=== PATIENT | male | born 1960 | race Caucasian/White ===

== ENCOUNTER 2024-11-07 19:22 | Observation (INO) | payer OTHER ==
[2024-11-07 20:41] LABS: Absolute Basophils 0.1 K/uL (0-0.5); Absolute Eosinophils 0.1 K/uL (0-0.5); Absolute Lymphocytes (CBC) 1.2 K/uL (0.7-4.9); Absolute Monocytes 0.3 K/uL (0.1-1.3); Absolute Neutrophil 10.2 K/uL (1.8-8.0); Basophils % 0.6 % (0-1.3); Eosinophils % 0.7 % (0-4.4); Hematocrit 47.2 % (39.6-49.0); Hemoglobin 15.8 g/dL (13.6-17.9); Lymphocytes % 10.3 % (15.3-44.8); MCH 32.1 pg (27.0-35.0); MCHC 33.5 g/dL (32.0-36.0); MCV 95.9 fL (80-100); MPV 8.8 fL (7.6-11.3); Monocytes % 2.9 % (3.3-12.3); Neutrophils % 85.5 % (41.7-73.7); Platelets 184 thou/uL (152-406); RBC Red Blood Cell Count 4.92 M/uL (4.33-5.43); Red Cell Distribution Width 13.2 % (12.1-15.2)
[2024-11-07 20:47] LABS: PT Prothrombin Time 11.5 SECONDS (10-13.0); Protime INR 1.01
[2024-11-07 21:02] LABS: ALT/SGPT 20 U/L (16-61); AST/SGOT 22 U/L (15-37); Albumin/Globulin Ratio 1.2 (1.1-1.8); Alkaline Phosphatase 99 U/L (45-117); Anion Gap 8.3 mEq/L (5.0-15.0); BUN Blood Urea Nitrogen 12 mg/dL (7-18); Bicarbonate 30 mEq/L (21-32); Bilirubin Total 0.8 mg/dL (0.2-1.0); Globulin 3.4 g/dL (2.3-3.5); Glomerular Filtration Rate 85 ml/min (=/>90); Glucose Level 122 mg/dL (74-106); Lipase 35 U/L (13-75); Magnesium 2.3 mg/dL (1.6-2.4); NT PRO-BNP 156 pg/mL (<125); Potassium 4.3 mEq/L (3.5-5.1); Protein, Total 7.4 g/dL (6.4-8.2); Sodium Level 138 mEq/L (136-145); Troponin High Sensitivity 9.8 pg/mL (<58.9)
[2024-11-07 21:08] LABS: Bilirubin Direct < 0.2 mg/dL (0-0.2); Bilirubin Indirect, Calculated 0.6 mg/dL (0.2-0.8)
--- NOTE | 2024-11-07 21:18 | RAD REPORT ---
EXAM: CT brain without contrast HISTORY: HEADACHE COMPARISON: None TECHNIQUE: Multiple contiguous axial images were obtained and a CT of the brain without contrast. Sag ittal and coronal reformats were performed. One or more of the following dose reduction techniques were used: Automated exposure control, adjust ment of the mA and/or kV according to patient size, and/or iterative reconstruction. FINDINGS: No evidence of hydrocephalus, intracranial hemorrhage, or extra-axial fluid collection. The brain is normal in morphology. No evidence of midline shift or areas of brain edema. The calvarium is intact. The visualized paranasal sinuses and mastoid air cells are essentially clear . IMPRESSION: No evidence of acute intracranial abnormality.
[2024-11-07] MEDS ORDERED: ASPIRIN EC 81 MG TAB PO ONE (21:28)
[2024-11-07] MEDS ORDERED: NA CHLORIDE 0.9% 1,000 ML ONE (21:28)
--- NOTE | 2024-11-07 21:31 | RAD REPORT ---
EXAMINATION: ONE VIEW CHEST XR CLINICAL INDICATION: CHEST PAIN TECHNIQUE: Frontal chest projection is submitted. Examination is limited by patient positioning and t echnique. COMPARISON: 12/26/2007 FINDINGS: The lungs are well inflated and clear. The heart is upper limit of normal in size. No displaced fract ures identified. IMPRESSION: No acute intrathoracic abnormalities.
--- NOTE | 2024-11-07 21:35 | EDPHYS ---
Physician Documentation [facility] Name: Benoit Lau Age: 64 yrs Sex: Male : 1960 Arrival Date: 11/07/2024 Time: 19:22 Bed 13 Private MD: ED Physician Holland Villarreal HPI: 11/07 20:38 This 64 yrs old Male presents to ER via Ambulatory with complaints of Chest katrina Tightness, High Blood Pressure, Headache. 20:38 The patient or guardian reports chest pain that is located primarily in the substernal katrina area. Onset: last night. The pain does not radiate. Associated signs and symptoms: The patient has no apparent associated signs or symptoms. The chest pain is described as a pressure. Duration: The patient or guardian reports a single episode, that is still ongoing. Modifying factors: The symptoms are alleviated by nothing. the symptoms are aggravated by nothing. Severity of pain: At its worst the pain was moderate in the emergency department the pain has improved mildly. The patient has not experienced similar symptoms in the past. Historical: - Allergies: 20:11 mycins; iw 20:11 Darvocet-N 100; iw 20:11 Morphine; iw 20:11 Sulfa (Sulfonamide Antibiotics); iw 20:11 Keflex; iw - Home Meds: 20:11 Dilaudid 2 mg oral tablet every 8 hours [Active]; iw - PMHx: 20:11 Chronic pain; iw - PSHx: 20:11 back X 3; iw - Immunization history:: Adult Immunizations not up to date. - Infectious Disease History:: Denies. - Social history:: Smoking status: Patient denies any tobacco usage or history of. - Family history:: not pertinent. ROS: 20:38 Constitutional: Negative for fever, chills, and weight loss, Eyes: Negative for injury, katrina pain, redness, and discharge, ENT: Negative for injury, pain, and discharge, Neck: Negative for injury, pain, and swelling, Respiratory: Negative for shortness of breath, cough, wheezing, and pleuritic chest pain, Abdomen/GI: Negative for abdominal pain, nausea, vomiting, diarrhea, and constipation, Back: Negative for injury and pain, : Negative for injury, bleeding, discharge, and swelling, MS/Extremity: Negative for injury and deformity, Skin: Negative for injury, rash, and discoloration, Neuro: Negative for headache, weakness, numbness, tingling, and seizure, Psych: Negative for depression, anxiety, suicide ideation, homicidal ideation, and hallucinations, Allergy/Immunology: Negative for hives, rash, and allergies, Endocrine: Negative for neck swelling, polydipsia, polyuria, polyphagia, and marked weight changes, Hematologic/Lymphatic: Negative for swollen nodes, abnormal bleeding, and unusual bruising, 20:38 Cardiovascular: Positive for chest pain, of the chest, Exam: 20:38 Constitutional: This is a well developed, well nourished patient who is awake, alert, katrina and in no acute distress. Head/Face: Normocephalic, atraumatic. Eyes: Pupils equal round and reactive to light, extra-ocular motions intact. Lids and lashes normal. Conjunctiva and sclera are non-icteric and not injected. Cornea within normal limits. Periorbital areas with no swelling, redness, or edema. ENT: Nares patent. No nasal discharge, no septal abnormalities noted. Tympanic membranes are normal and external auditory canals are clear. Oropharynx with no redness, swelling, or masses, exudates, or evidence of obstruction, uvula midline. Mucous membranes moist. Neck: Trachea midline, no thyromegaly or masses palpated, and no cervical lymphadenopathy. Supple, full range of motion without nuchal rigidity, or vertebral point tenderness. No Meningismus. Chest/axilla: Normal chest wall appearance and motion. Nontender with no deformity. No lesions are appreciated. Cardiovascular: Regular rate and rhythm with a normal S1 and S2. No gallops, murmurs, or rubs. Normal PMI, no JVD. No pulse deficits. Respiratory: Lungs have equal breath sounds bilaterally, clear to auscultation and percussion. No rales, rhonchi or wheezes noted. No increased work of breathing, no retractions or nasal flaring. Abdomen/GI: Soft, non-tender, with normal bowel sounds. No distension or tympany. No guarding or rebound. No evidence of tenderness throughout. Back: No spinal tenderness. No costovertebral tenderness. Full range of motion. Male : Normal genitalia with no discharge or lesions. Skin: Warm, dry with normal turgor. Normal color with no rashes, no lesions, and no evidence of cellulitis. MS/ Extremity: Pulses equal, no cyanosis. Neurovascular intact. Full, normal range of motion., bilateral aka Neuro: Awake and alert, GCS 15, oriented to person, place, time, and situation. Cranial nerves II-XII grossly intact. Motor strength 5/5 in all extremities. Sensory grossly intact. Cerebellar exam normal. Normal gait. Psych: Awake, alert, with orientation to person, place and time. Behavior, mood, and affect are within normal limits. 20:38 ECG was reviewed by the Attending Physician. 20:38 Musculoskeletal/extremity: ROM: no acute changes, Circulation is intact in all extremities. Compartment Syndrome exam of affected extremity: is normal. DVT Exam: No signs of deep vein thrombosis. no pain, no swelling, no tenderness, negative Homans' sign noted on exam, no appreciated bluish discoloration, no erythema, no increased warmth, 21:37 ECG was reviewed by the Attending Physician. [facility] Vital Signs: 20:09 BP 198 / 86; Pulse 62; Resp 16; Temp 98.2; Pulse Ox 100% ; Weight 81.65 kg; Height 5 iw ft. 8 in. ; Pain 8/10; 21:52 BP 186 / 83; Pulse 68; Resp 16 S; Pulse Ox 99% on R/A; br2 22:00 BP 183 / 81; Pulse 60; Resp 15; Pulse Ox 100% ; me1 23:00 BP 169 / 83; Pulse 62; Resp 18; Pulse Ox 96% ; cp4 11/08 00:00 BP 162 / 83; Pulse 64; Resp 18; Pulse Ox 97% ; cp4 02:36 BP 146 / 75; Pulse 63; Resp 18; Pulse Ox 94% ; cp4 11/07 20:09 Body Mass Index 27.37 (81.65 kg, 172.72 cm) iw 11/07 20:09 Pain Scale: Adult iw MDM: 11/07 20:10 Medical Screening Exam initiated katrina 20:40 HEART Score: History: Slightly Suspicious (0), Age: > 45 and < 65 years (1), Risk katrina Factors: 1 or 2 risk factors (1), [Hypertension] [+ Family HX]. The patient was given aspirin in the Emergency Department. Data reviewed: vital signs, nurses notes, lab test result(s), EKG, radiologic studies, CT scan, plain films. Consideration of Admission/Observation Escalation of care including admission/observation considered. Independent interpretation of the following test(s) in the Emergency Department EKG: See my EKG interpretation above. 11/07 20:09 Order name: Basic Metabolic Panel; Complete Time: 21:38 katrina 11/07 20:09 Order name: CBC with Diff; Complete Time: 21:38 katrina 11/07 20:09 Order name: LFT's; Complete Time: 21:38 11/07 20:09 Order name: Magnesium; Complete Time: 21:38 11/07 20:09 Order name: NT PRO-BNP; Complete Time: 21:38 katrina 11/07 20:09 Order name: PT-INR; Complete Time: 21:38 katrina 11/07 20:09 Order name: Troponin HS; Complete Time: 21:38 [facility] 11/07 20:09 Order name: Lipase; Complete Time: 21:38 [facility] 11/07 20:09 Order name: Urinalysis w/ reflexes katrina 11/07 22:40 Order name: Urinalysis w/ reflexes [facility]OK 11/07 22:40 Order name: CBC with Automated Diff EDMS 11/07 22:40 Order name: CBC with Automated Diff EDMS 11/07 22:40 Order name: Comprehensive Metabolic Panel EDMS 11/07 22:40 Order name: Comprehensive Metabolic Panel EDMS 11/07 22:40 Order name: Troponin High Sensitivity EDMS 11/07 22:40 Order name: Troponin High Sensitivity EDMS 11/07 20:09 Order name: XRAY Chest (1 view); Complete Time: 21:38 [facility] 11/07 20:37 Order name: CT Head Brain wo Cont; Complete Time: 21:38 katrina 11/07 20:09 Order name: EKG; Complete Time: 20:09 11/07 20:09 Order name: Cardiac monitoring; Complete Time: 22:06 katrina 11/07 20:09 Order name: EKG - Nurse/Tech; Complete Time: 21:52 katrina 11/07 20:09 Order name: IV Saline Lock; Complete Time: 21:51 katrina 11/07 20:09 Order name: Labs collected and sent; Complete Time: 21:51 katrina 11/07 20:09 Order name: O2 Per Protocol; Complete Time: 21:51 katrina 11/07 20:09 Order name: O2 Sat Monitoring; Complete Time: 21:51 katrina EC:37 Rate is 65 beats/min. Rhythm is regular. QRS [place] is Normal. [place] interval is shortened katrina at 100 msec. QRS interval is normal. QT interval is normal. No Q waves. T waves are Normal. No ST changes noted. Clinical impression: NSR w/ Non-specific ST/T Changes and No evidence of ischemia. Interpreted by me. Reviewed by me. Administered Medications: 21:48 Drug: Aspirin PO Chewable Tablet 81 mg PO once Route: PO; br2 23:08 Follow up: Response: No adverse reaction me1 21:48 Drug: Metoprolol PO 25 mg PO once Route: PO; br2 23:07 Follow up: Response: No adverse reaction; Blood pressure is lowered me1 21:48 Drug: Lisinopril PO 20 mg PO once Route: PO; br2 23:07 Follow up: Response: No adverse reaction; Blood pressure is lowered me1 21:49 Drug: NS 0.9% IV 500 ml 500 ml IV at 1 bolus once; to be given as a bolus over 30 br2 minutes Volume: 500 ml; Route: IV; Rate: 1 bolus; Site: left antecubital; 23:08 Follow up: Response: No adverse reaction; IV Status: Completed infusion me1 Disposition Summary: 11/07/24 21:35 Hospitalization Ordered Notes: Hospitalization Status: Observation katrina Provider: Ben Hercules cha Location: Telemetry/MedSurg (observation) katrina Condition: Stable katrina Problem: new katrina Symptoms: have improved katrina Bed/Room Type: Standard [facility] Room Assignment: 406(11/08/24 01:16) br2 Diagnosis - Chest pain, unspecified katrina - Essential (primary) hypertension katrina Forms: - Medication Reconciliation Form katrina - SBAR form katrina - Leadership Thank You Letter katrina Signatures: Dispatcher [employer] Holland Rodriguez MD MD cha Williams, Irene, RN RN iw Elise Noble RN RN br2 Caro Magdaleno RN me1 Corrections: (The following items were deleted from the chart) 11/08 00:33 11/07 21:35 katrina br2 03 00:48 00:33 413 br2 br2 01:16 00:48 br2 br2
--- NOTE | 2024-11-07 21:35 | ER ---
Nurse's Notes [facility] Name: Benoit Lau Age: 64 yrs Sex: Male : 1960 Arrival Date: 11/07/2024 Time: 19:22 Bed 13 Private MD: Diagnosis: Chest pain, unspecified;Essential (primary) hypertension Presentation: 11/07 20:09 Chief complaint: Patient states: chest tightness and fullness since yesterday , also iw has a bad headache, and his BP has been elevated. Coronavirus screen: At this time, the client does not indicate any symptoms associated with coronavirus-19. Ebola Screen: No symptoms or risks identified at this time. Initial Sepsis Screen: Does the patient meet any 2 criteria? No. Patient's initial sepsis screen is negative. Does the patient have a suspected source of infection? No. Patient's initial sepsis screen is negative. Risk Assessment: Do you want to hurt yourself or someone else? Patient reports no desire to harm self or others. Onset of symptoms was November 06, 2024. 20:09 Method Of Arrival: Ambulatory iw 20:09 Acuity: BETSY 3 iw Historical: - Allergies: 20:11 mycins; iw 20:11 Darvocet-N 100; iw 20:11 Morphine; iw 20:11 Sulfa (Sulfonamide Antibiotics); iw 20:11 Keflex; iw - Home Meds: 20:11 Dilaudid 2 mg oral tablet every 8 hours [Active]; iw - PMHx: 20:11 Chronic pain; iw - PSHx: 20:11 back X 3; iw - Immunization history:: Adult Immunizations not up to date. - Infectious Disease History:: Denies. - Social history:: Smoking status: Patient denies any tobacco usage or history of. - Family history:: not pertinent. Screenin:30 [facility] ED Fall Risk Assessment (Adult) History of falling in the last 3 months, me1 including since admission No falls in past 3 months (0 pts) Confusion or Disorientation No (0 pts) Intoxicated or Sedated No (0 pts) Impaired Gait No (0 pts) Mobility Assist Device Used No (0 pt) Altered Elimination No (0 pt) Score/Fall Risk Level 0 - 2 = Low Risk. Abuse screen: Denies threats or abuse. Nutritional screening: No deficits noted. Tuberculosis screening: No symptoms or risk factors identified. Assessment: 21:30 General: Appears uncomfortable, well groomed, well developed, well nourished, Behavior me1 is calm, cooperative, appropriate for age, Reports chest tightness and fullness since yesterday , also has a bad headache, and his BP has been elevated. Pain: Complains of pain in head and chest Pain does not radiate. Pain currently is 6 out of 10 on a pain scale. Quality of pain is described as fullness Pain began 1 day ago. Is continuous. Neuro: Level of Consciousness is awake, alert, obeys commands, Oriented to person, place, time, situation, Appropriate for age Reports headache. Cardiovascular: Reports chest pain, Patient's skin is warm and dry. Respiratory: Airway is patent Respiratory effort is even, unlabored, Respiratory pattern is regular, symmetrical. GI: No signs and/or symptoms were reported involving the gastrointestinal system. : No signs and/or symptoms were reported regarding the genitourinary system. EENT: No signs and/or symptoms were reported regarding the EENT system. Derm: Skin is intact, is healthy with good turgor, Skin is pink, warm \T\ dry. Musculoskeletal: No signs and/or symptoms reported regarding the musculoskeletal system. Vital Signs: 20:09 BP 198 / 86; Pulse 62; Resp 16; Temp 98.2; Pulse Ox 100% ; Weight 81.65 kg; Height 5 iw ft. 8 in. ; Pain 8/10; 21:52 BP 186 / 83; Pulse 68; Resp 16 S; Pulse Ox 99% on R/A; br2 22:00 BP 183 / 81; Pulse 60; Resp 15; Pulse Ox 100% ; me1 23:00 BP 169 / 83; Pulse 62; Resp 18; Pulse Ox 96% ; cp4 11/08 00:00 BP 162 / 83; Pulse 64; Resp 18; Pulse Ox 97% ; cp4 02:36 BP 146 / 75; Pulse 63; Resp 18; Pulse Ox 94% ; cp4 11/07 20:09 Body Mass Index 27.37 (81.65 kg, 172.72 cm) iw 11/07 20:09 Pain Scale: Adult iw ED Course: 11/07 19:23 Patient arrived in ED. jj6 20:07 Holland Villarreal MD is Attending Physician. katrina 20:11 Triage completed. iw 20:13 Arm band placed on. iw 21:06 XRAY Chest (1 view) In Process Unspecified. EDMS 21:10 CT Head Brain wo Cont In Process Unspecified. EDMS 21:30 Patient has correct armband on for positive identification. Bed in low position. Call me1 light in reach. Side rails up X2. Provided Education on: POC. Verbalized understanding.. Client placed on continuous cardiac and pulse oximetry monitoring. NIBP monitoring applied. case monitor on. Pulse ox on. NIBP on. 21:30 No provider procedures requiring assistance completed. Patient maintains SpO2 me1 saturation greater than 95% on room air. 21:34 Ben Hercules MD is Hospitalizing Provider. [facility] 21:51 Cindy Rothman is Primary Nurse. cp4 21:51 IV Changed dressing on left antecubital 20g. br2 11/08 02:35 Patient admitted, IV remains in place. cp4 Administered Medications: 11/07 21:48 Drug: Aspirin PO Chewable Tablet 81 mg PO once Route: PO; br2 23:08 Follow up: Response: No adverse reaction me1 21:48 Drug: Metoprolol PO 25 mg PO once Route: PO; br2 23:07 Follow up: Response: No adverse reaction; Blood pressure is lowered me1 21:48 Drug: Lisinopril PO 20 mg PO once Route: PO; br2 23:07 Follow up: Response: No adverse reaction; Blood pressure is lowered me1 21:49 Drug: NS 0.9% IV 500 ml 500 ml IV at 1 bolus once; to be given as a bolus over 30 br2 minutes Volume: 500 ml; Route: IV; Rate: 1 bolus; Site: left antecubital; 23:08 Follow up: Response: No adverse reaction; IV Status: Completed infusion me1 Medication: 21:30 VIS not applicable for this client. me1 Outcome: 21:35 Decision to Hospitalize by Provider. [facility] 11/08 02:35 Admitted to Med/surg accompanied by tech, via stretcher, room 406, with chart, cp4 Condition: stable Instructed on the need for admit, 02:44 Patient left the ED. cp4 Signatures: Dispatcher [employer] EDHolland Chase MD MD cha Williams, Irene, RN RN Kelsey Bautista Michelle, RN RN me1 Cindy Rothman cp4 Elise Noble RN RN br2 Corrections: (The following items were deleted from the chart) 11/07 23:04 20:09 Chief complaint: Patient states: chest tightness and fullness since yesterday , maribel also has a bad headache, and his BP has been elevated iw
[2024-11-07] MEDS ORDERED: lisinopriL 20 MG TAB ONE (21:38)
[2024-11-07] MEDS ORDERED: METOPROLOL TAR 25 MG TAB ONE (21:38)
--- NOTE | 2024-11-07 22:35 | P.HP ---
Certification for Inpatient Patient admitted to: Observation With expected LOS: <2 Midnights Practitioner: I am a practitioner with admitting privileges, knowledge of patient current condition, hospital course, and medical plan of care. Services: Services provided to patient in accordance with Admission requirements found in Title 42 Section 412.3 of the Code of Federal Regulations Patient History Date of Service: 11/08/24 Reason for admission: CP History of Present Illness: 64 yrs old Male with past medical history of chronic pain who presented to the ER with chest discomfort. Patient started having chest pain which is located in substernal area as a pressure-like feeling with no radiation. Denies any diaphoresis. No fever or chills. No nausea vomiting or diarrhea. No sick contacts. Does not have any change in position or exercise. At the time of interview the pain is slightly better. Denies any previous history of CAD. Patient also having some headache not associated with any nausea or vomiting or blurring of vision. Denies any weakness Patient was assessed in the ER and is admitted for further management of chest pain rule out ACS Allergies acetaminophen [From Darvocet-N 100] Allergy (Verified 11/08/24 01:54) unk azithromycin Allergy (Verified 11/08/24 02:56) stomach pain cephalexin [From Keflex] Allergy (Verified 11/08/24 02:56) abdominal pain morphine Allergy (Verified 11/08/24 02:56) Nausea/Vomiting propoxyphene [From Darvocet-N 100] Allergy (Verified 11/08/24 01:54) unk Sulfa (Sulfonamide Antibiotics) Allergy (Verified 11/08/24 01:54) unk Home medications list reviewed: Yes Home Medications: Amlodipine [Norvasc*] 10 mg PO DAILY #30 tab 11/08/24 Apixaban [Eliquis] 5 mg PO BID #74 tab 11/08/24 Aspirin [Aspirin EC 81 MG] 81 mg PO DAILY #30 tab 11/08/24 Atorvastatin Calcium [Lipitor] 40 mg PO BEDTIME #30 tab 11/08/24 Baclofen 20 mg PO BID 11/08/24 Carvedilol [Coreg] 12.5 mg PO BID 11/08/24 Hydromorphone HCl [Dilaudid] 8 mg PO TID 11/08/24 Lisinopril [Zestril] 20 mg PO DAILY 11/08/24 - Past Medical/Surgical History Past Medical History: Reviewed- Non-Contributory -: HTN, HLD Past Surgical History: Reviewed- Non-Contributory - Family History Family History: Reviewed- Non-Contributory - Social History Smoking Status: Never smoker Review of Systems 10-point ROS is otherwise unremarkable Physical Examination - Vital Signs Temperature: 97.5 F Blood Pressure: 138/72 Pulse: 76 Respirations: 18 Pulse Ox (%): 94 - Physical Exam General: Alert, In no apparent distress, Oriented x3 HEENT: Atraumatic, Normocephalic Neck: Supple Respiratory: Clear to auscultation bilaterally, Normal air movement Cardiovascular: Regular rate/rhythm, Normal S1 S2 Capillary refill: <2 Seconds Gastrointestinal: Soft and benign, Non-distended, W/out hepatosplenomegaly Musculoskeletal: No clubbing, No swelling Integumentary: No rashes Neurological: Normal speech, Normal strength at 5/5 x4 extr Lymphatics: No axilla or inguinal lymphadenopathy - Studies Laboratory Data (last 24 hrs) 11/07/24 11/07/24 11/07/24 20:30 20:30 20:30 WBC 12.00 H Hgb 15.8 Hct 47.2 Plt Count 184 PT 11.5 INR 1.01 Sodium 138 Potassium 4.3 BUN 12 Creatinine 1.00 Glucose 122 H Magnesium 2.3 Total Bilirubin 0.8 AST 22 ALT 20 Alkaline Phosphatase 99 Lipase 35 Assessment and Plan - Plan Chest pain rule out ACS Will trend cardiac enzymes Will monitor telemetry Started on aspirin and statin EKG did not show any acute changes suggestive of ischemia Headache Will get an echocardiogram Cardiology consult Headache CT head is negative for any acute changes Resolved now Monitor closely GI/DVT prophylaxis Advanced directive full code Discharge Plan: Home Plan to discharge in: 24 Hours - Advance Directives Does patient have a Living Will: No Does patient have a Durable POA for Healthcare: No - Code Status/Comfort Care Code Status: Full Code Time Spent Managing Pts Care (In Minutes): 48
[2024-11-07] MEDS ORDERED: ONDANSETRON 4 MG/2 ML VIAL IV PRN (22:36)
[2024-11-07] MEDS ORDERED: ACETAMINOPHEN 325 MG TABLET PO PRN (22:36)
[2024-11-08 03:09] VITALS: O2SAT 94
[2024-11-08 03:20] VITALS: BMI 27.3
[2024-11-08] MEDS: HYDRALAZINE HCL 20 MG/ML VIAL ONE (04:01)
[2024-11-08] MEDS: HYDRALAZINE HCL 20 MG/ML VIAL IV PRN (04:10)
[2024-11-08 06:24] LABS: Absolute Eosinophils 0.1 K/uL (0-0.5); Absolute Lymphocytes (CBC) 2.4 K/uL (0.7-4.9); Absolute Monocytes 0.7 K/uL (0.1-1.3); Absolute Neutrophil 7.2 K/uL (1.8-8.0); Basophils % 0.4 % (0-1.3); Eosinophils % 1.3 % (0-4.4); Hematocrit 46.1 % (39.6-49.0); Hemoglobin 15.8 g/dL (13.6-17.9); Lymphocytes % 22.7 % (15.3-44.8); MCH 32.2 pg (27.0-35.0); MCHC 34.3 g/dL (32.0-36.0); MPV 9.7 fL (7.6-11.3); Monocytes % 6.7 % (3.3-12.3); Neutrophils % 68.9 % (41.7-73.7); Platelets 166 thou/uL (152-406); RBC Red Blood Cell Count 4.91 M/uL (4.33-5.43); Red Cell Distribution Width 12.8 % (12.1-15.2)
[2024-11-08 06:37] LABS: Albumin 3.7 g/dL (3.4-5.0); Albumin/Globulin Ratio 1.3 (1.1-1.8); Anion Gap 10.7 mEq/L (5.0-15.0); Globulin 2.8 g/dL (2.3-3.5); Potassium 3.7 mEq/L (3.5-5.1); Protein, Total 6.5 g/dL (6.4-8.2); Troponin High Sensitivity 10.1 pg/mL (<58.9)
[2024-11-08] MEDS: ENOXAPARIN 40 MG/0.4 ML SQ SCH (08:15)
[2024-11-08] MEDS: ASPIRIN EC 81 MG TAB PO SCH (08:15)
[2024-11-08] MEDS: AMLODIPINE 10 MG TAB PO SCH (14:03)
[2024-11-08] MEDS ORDERED: HOME MED 1 EA UNK (Hydromorphone Hcl [Dilaudid] 8 MG Tablet) PO SCH (14:48)
[2024-11-08] MEDS: lisinopriL 20 MG TAB PO SCH (15:44)
[2024-11-08] MEDS: carvediloL 12.5 MG TAB PO SCH (15:44)
[2024-11-08] MEDS: HYDROMORPHONE ORAL 4 MG TAB PO SCH (15:45)
[2024-11-08] MEDS: BACLOFEN 10 MG TAB PO SCH (15:47)
--- NOTE | 2024-11-08 16:57 | RAD REPORT ---
EXAMINATION: CTA CHEST PE CLINICAL INDICATION: Chest pain TECHNIQUE: 100 cc 370 Isovue administered intravenously. This examination was performed according to an angiographic protocol with 3D post-processing. This involves 3D reconstructions, MIPs, volume rendered images and/or shaded surface rendering. One or more of the following dose reduction techniqu es were used: Automated exposure control, adjustment of the mA and/or kV according to patient size, and/or iterative reconstruction. Unless otherwise specified, incidental findings do not require dedic ated imaging follow-up. [id number]. COMPARISON: No prior exam. FINDINGS: Thrombus is present within proximal right upper lobe pulmonary artery. No additional thrombus seen. Left ventricular hypertrophy is present. An aortic aneurysm not noted. No pleural effusion. No pericardial effusion. Lungs are clear. IMPRESSION: Right pulmonary embolus
[2024-11-08] MEDS: APIXABAN 5 MG TABLET PO SCH (17:43)
--- NOTE | 2024-11-08 18:49 | P.DS ---
Admission Date: 11/07/24 Discharge Date: 11/08/24 Disposition: ROUTINE DISCHARGE Discharge Condition: FAIR Reason for Admission: CP Brief History of Present Illness: 64 yrs old Male with past medical history of chronic pain presented to the ER with chest discomfort. Patient started having chest pain which is located in substernal area as a pressure-like feeling with no radiation. Denies any diaphoresis. No fever or chills. No nausea vomiting or diarrhea. No sick contacts. Patient reported the chest pain is worse with movement. He denied any previous history of CAD. Initial troponin in the ED negative, chest x-ray negative, EKG did not show acute ischemic changes. Patient was hospitalized for chest pain evaluation. Hospital Course: Diagnosis: Pulm embolism Chronic pain syndrome Hypertensive urgency Patient placed on observation on the medical floor. Troponin trended negative. ACS ruled out. He was complaining of chest tightness. CTA thorax was done which showed thrombosis in the right upper lobe pulmonary artery which can explain patient's symptoms. Patient at this moment has no recollection of any time when he was sedentary or several hours of driving or any known provoking incident. Patient noted to have significantly elevated BP. BP improved with his home medications which include losartan and Coreg, and additional amlodipine. Patient started on Eliquis-thromboembolism dosing. ACS ruled out. Patient is informed to follow-up with his PCP Dr. Mcdonald for further management of the PE. Cardiology Dr. Alvarado contacted who would follow-up patient in the office for arrangement for stress test. Vital Signs/Physical Exam: Temp Pulse Resp BP Pulse Ox 98.3 F 66 17 188/91 H 99 11/08/24 16:00 11/08/24 16:00 11/08/24 16:00 11/08/24 16:00 11/08/24 16:00 General: Alert, In no apparent distress, Oriented x3 HEENT: Mucous membr. moist/pink Neck: Supple, JVD not distended Respiratory: Clear to auscultation bilaterally, Normal air movement Cardiovascular: No edema, Regular rate/rhythm, Normal S1 S2 Gastrointestinal: Normal bowel sounds, Soft and benign, Non-distended, No tenderness Musculoskeletal: No swelling, No tenderness Integumentary: No rashes, No cyanosis Neurological: Normal strength at 5/5 x4 extr, Cranial nerves 3-12 intact Laboratory Data at Discharge: WBC 10.40 thou/uL (4.3-10.9) 11/08/24 05:38 Hgb 15.8 g/dL (13.6-17.9) 11/08/24 05:38 Hct 46.1 % (39.6-49.0) 11/08/24 05:38 Plt Count 166 thou/uL (152-406) 11/08/24 05:38 PT 11.5 SECONDS (10-13.0) 11/07/24 20:30 INR 1.01 11/07/24 20:30 Sodium 140 mEq/L (136-145) 11/08/24 05:38 Potassium 3.7 mEq/L (3.5-5.1) D 11/08/24 05:38 BUN 13 mg/dL (7-18) 11/08/24 05:38 Creatinine 0.91 mg/dL (0.70-1.30) 11/08/24 05:38 Glucose 101 mg/dL (74-106) 11/08/24 05:38 Magnesium 2.3 mg/dL (1.6-2.4) 11/07/24 20:30 Total Bilirubin 1.0 mg/dL (0.2-1.0) 11/08/24 05:38 AST 17 U/L (15-37) 11/08/24 05:38 ALT 18 U/L (16-61) 11/08/24 05:38 Alkaline Phosphatase 86 U/L (45-117) 11/08/24 05:38 Triglycerides 67 mg/dL (<150) 11/08/24 05:38 Cholesterol 153 mg/dL (<200) 11/08/24 05:38 HDL Cholesterol 61 mg/dL (40-60) H 11/08/24 05:38 Cholesterol/HDL Ratio 2.51 11/08/24 05:38 Lipase 35 U/L (13-75) 11/07/24 20:30 Home Medications: Amlodipine [Norvasc*] 10 mg PO DAILY #30 tab 11/08/24 Apixaban [Eliquis] 5 mg PO BID #74 tab 11/08/24 Aspirin [Aspirin EC 81 MG] 81 mg PO DAILY #30 tab 11/08/24 Atorvastatin Calcium [Lipitor] 40 mg PO BEDTIME #30 tab 11/08/24 Baclofen 20 mg PO BID 11/08/24 Carvedilol [Coreg] 12.5 mg PO BID 11/08/24 Hydromorphone HCl [Dilaudid] 8 mg PO TID 11/08/24 Lisinopril [Zestril] 20 mg PO DAILY 11/08/24 New Medications: Aspirin [Aspirin EC 81 MG] 81 mg PO DAILY #30 tab Apixaban [Eliquis] 5 mg PO BID #74 tab Atorvastatin Calcium [Lipitor] 40 mg PO BEDTIME #30 tab Amlodipine [Norvasc*] 10 mg PO DAILY #30 tab Diet: AHA Activity: Ad juan manuel Followup: Jose De Jesus Mcdonald MD [Primary Care Provider] - 1 Week Johnny Alvarado MD [ACTIVE - CAN ADMIT] - (Please call for arrangement for stress test.) Time spent managing pt's care (in minutes): 28
[2024-11-08] MEDS: ATORVASTATIN 40 MG TAB PO SCH (20:27)
[2024-11-08] MEDS ORDERED: HOME MED 1 EA UNK (Baclofen [Baclofen] 20 MG Tablet) PO SCH (21:00)
[2024-11-08 23:49] VITALS: BP 138/72; TEMP 97.5
--- NOTE | 2024-11-10 12:07 | EKG ---
Test Date: 2024-11-07 Test Time: 20:22:53 Web Services Manager: BRIAN MEASUREMENT RESULTS: Intervals: Rate: 65 IL: 100 QRSD: 78 QT: 430 QTc: 447 Starke: P: 19 IL: 100 QRS: 52 T: 68 INTERPRETIVE STATEMENTS: Sinus rhythm with short IL Possible Left atrial enlargement Borderline ECG Compared to ECG 07/23/2008 08:51:20 No significant changes Electronically Signed On 11-10-24 12:02:09 CDT by Dhruv Zelaya
== END 2024-11-08 21:00 | disposition home or self-care (01) ==
LOC: ER 19:22 → ERHOLD 22:36 → 4TH 11-08 01:53
PROVIDERS: ADMIT Family Medicine; ATTEND Internal Medicine
DX: I26.99 Other pulmonary embolism without acute cor pulmonale (principal); I16.0 Hypertensive urgency; R51.9 Headache, unspecified; R07.9 Chest pain, unspecified; G89.29 Other chronic pain; Z88.2 Allergy status to sulfonamides; Z88.6 Allergy status to analgesic agent; Z88.5 Allergy status to narcotic agent; Z88.1 Allergy status to other antibiotic agents
CPT/HCPCS: 93005; 85025 ×2; 80048; 36415; 83735; 85610; 80061; 82947; 80076; 84484 ×3; 83690; 80053; 83880; 70450; 71275; 71045; 96360; 99285; Q9967; J0360; J1650; J7030